=== PATIENT | male | born 1990 | race Two or more races ===

== ENCOUNTER 2017-02-05 22:02 | Emergency (ER) | payer SELFPAY ==
[~2017-02-05] VITALS: Ht 149.9 cm; Wt 69.0 kg
[2017-02-05 22:50] VITALS: BP 132/82
== END 2017-02-06 03:07 | disposition left against medical advice (07) ==
LOC: ER 22:02
DX: R21 Rash and other nonspecific skin eruption (principal); Z53.21 Procedure and treatment not carried out due to patient leaving prior to being seen by health care provider